=== PATIENT | female | born 1995 | race Caucasian/White ===

== ENCOUNTER 2018-11-11 12:59 | Emergency (ER) | payer SELFPAY ==
[2018-11-11] MEDS: DEXAMETHASONE 10 MG/ML 1 ML INJ IM (14:07)
== END 2018-11-11 14:34 | disposition home or self-care (01) ==
LOC: FTE 14:34
DX: H02.845 Edema of left lower eyelid (principal); F17.210 Nicotine dependence, cigarettes, uncomplicated; R21 Rash and other nonspecific skin eruption; J45.909 Unspecified asthma, uncomplicated; H02.842 Edema of right lower eyelid
CPT/HCPCS: 81025; 96372; 99284-25